=== PATIENT | male | born 1945 | race Caucasian/White ===

== ENCOUNTER 2020-10-14 09:45 | Observation (INO) ==
[2020-10-14 10:20] LABS: Basophils # 0.1 K/mcL (0.0-0.2); Basophils % 0.7 %; Eosinophils # 0.1 K/mcL (0.0-0.6); Eosinophils % 1.5 %; Hematocrit 47.3 % (37.5-50.1); Hemoglobin 16.1 g/dL (12.9-16.9); Immature Granulocytes % 0.2 % (0-4); Lymphocytes # 2.1 K/mcL (0.6-4.6); Lymphocytes % 24.9 %; Mean Corpuscular Hemoglobin 32.7 pg (28.0-33.3); Mean Corpuscular Volume 95.9 fL (83.0-100.0); Mean Platelet Volume 10.9 fL (9.4-12.4); Monocytes # 0.6 K/mcL (0.0-1.3); Monocytes % 6.5 %; Neutrophils # 5.6 K/mcL (1.6-8.9); Platelet Count 245 K/mcL (140-400); Red Blood Count 4.93 M/mcL (4.19-5.50); Segmented Neutrophils % 66.2 %; White Blood Count 8.4 K/mcL (4.3-11.1)
[2020-10-14 10:35] LABS: Calcium 9.7 mg/dL (8.6-10.3); Magnesium 1.9 mg/dL (1.6-2.6); Potassium 3.8 mEq/L (3.5-5.1); Troponin I 0.03 ng/mL (< 0.04)
[2020-10-14 10:45] LABS: Prothrombin Time 11.8 Seconds (9.4-12.1)
[2020-10-14 10:48] LABS: Activated Partial Thrombo Time 32.3 Seconds (26.0-36.0); Thyroid Stimulating Hormone 2.051 mcIU/mL (0.340-5.600)
[2020-10-14] MEDS ORDERED: 0.9 % Sodium Chloride 500 ML IVC ONE (10:52)
[2020-10-14] MEDS ORDERED: Naloxone 0.4 MG/ML INJ IVP PRN (11:40)
[2020-10-14] MEDS ORDERED: *HR* Dextrose 50 % in Water (Vial) 50 ML VIAL IVP PRN (11:44)
[2020-10-14] MEDS ORDERED: Dextrose Gel 15 GM/37.5 ML TUBE PO PRN ×2 (11:44)
[2020-10-14] MEDS ORDERED: D5% in Water 1,000 ML IVC PRN (11:44)
[2020-10-14] MEDS ORDERED: 0.9 % Sodium Chloride 1,000 ML IVC SCH (15:00)
[2020-10-14] MEDS: Insulin LISPRO 300 UNITS/3 ML VIAL SQ SCH ×2 (16:27→16:44)
[2020-10-14] MEDS: Apixaban 5 MG TABLET PO SCH ×2 (16:44→19:53)
[2020-10-14] MEDS: clonazePAM 0.5 MG TABLET PO SCH (19:53)
[2020-10-14] MEDS: Gabapentin 100 MG CAPSULE PO SCH (19:53)
[2020-10-14] MEDS: Dorzolamide/Timolol OPTH 10 ML BOTTLE LEFT EYE SCH (19:55)
[2020-10-14] MEDS ORDERED: Insulin LISPRO 300 UNITS/3 ML VIAL SQ SCH (21:00)
[2020-10-14] MEDS ORDERED: Mirtazapine 15 MG TABLET PO SCH (21:00)
[2020-10-14] MEDS ORDERED: Dorzolamide/Timolol OPTH 10 ML BOTTLE LEFT EYE SCH (21:00)
[2020-10-15] MEDS ORDERED: Acetaminophen 325 MG TABLET PO PRN (01:56)
[2020-10-15 05:00] LABS: Calcium 9.1 mg/dL (8.6-10.3); Magnesium 1.9 mg/dL (1.6-2.6); Phosphorous 2.2 mg/dL (2.7-4.5); Potassium 3.9 mEq/L (3.5-5.1)
[2020-10-15] MEDS: clonazePAM 0.5 MG TABLET PO SCH (08:25)
[2020-10-15] MEDS: Gabapentin 100 MG CAPSULE PO SCH (08:25)
[2020-10-15] MEDS: Dorzolamide/Timolol OPTH 10 ML BOTTLE LEFT EYE SCH (08:26)
[2020-10-15] MEDS: Apixaban 5 MG TABLET PO SCH (08:26)
[2020-10-15] MEDS: Insulin LISPRO 300 UNITS/3 ML VIAL SQ SCH ×3 (08:27→11:20)
[2020-10-15] MEDS ORDERED: Aspirin Enteric Coated 81 MG Tablet PO SCH (09:00)
[2020-10-15] MEDS ORDERED: allopurinoL 100 MG TABLET PO SCH (09:00)
[2020-10-15] MEDS ORDERED: Latanoprost 2.5 ML BOTTLE LEFT EYE SCH ×2 (09:00)
[2020-10-15] MEDS ORDERED: INSULIN DEGLUDEC SQ SCH (09:00)
[2020-10-15] MEDS ORDERED: LIRAGLUTIDE SQ SCH (09:00)
[2020-10-15] MEDS ORDERED: BuPROPion SR (12 HR) 150 MG TABLET PO SCH (09:00)
[2020-10-15] MEDS ORDERED: Losartan/HCTZ 50-12.5 TABLET PO SCH (09:00)
[2020-10-15 13:52] VITALS: BP 142/71
== END 2020-10-15 14:04 | disposition home or self-care (01) ==
LOC: EMEROOARM 09:45 → 3BNU 09:45 → SUATTDRO 11:30 → 3BNU 12:41
PROVIDERS: ADMIT Internal Medicine; ATTEND Internal Medicine